=== PATIENT | female | born 2000 | race Caucasian/White ===

== ENCOUNTER 2020-06-15 15:48 | Emergency (ER) | payer OTHER, SELFPAY ==
[2020-06-15 15:49] VITALS: BP 126/83; PULSE 88; RESP 16; TEMP 36.3; O2SAT 98; BMI 23.6
--- NOTE | 2020-06-15 15:59 | ED.VIS.GEN ---
History of Present Illness Informant: Patient Onset: Today Context: Gradual Onset Timing: Continuous Quality: nausea Location: stomach Current Severity: Severe Maximum Severity: Severe Worsened by: Eating and drinking Relieved by: Nothing Associated Symptoms: Nausea and vomiting Narrative: 20-year-old female who denies any significant past medical history presents to the emergency department with nausea and vomiting. Patient states that throughout the course of today she has had difficulty keeping down food and fluids. She states she was drinking alcohol last evening. Everclear. She states that she has drank more in the past without these type of symptoms. She is not really having any abdominal pain. She is not lightheaded or dizzy. No coffee-ground emesis or hematemesis. No diarrhea melena or hematochezia. She is been urinating normally. No fevers chest pain or shortness of breath. No sick contacts. No recent travel no sick contacts no antibiotic use recently. No history of abdominal surgeries. Prior similar symptoms: Yes Recent Illness/Hospitalization: No <Ruben Romero - Last Filed: 06/15/20 17:00> <Quique Bolden - Last Filed: 06/15/20 17:04> Chief Complaint: Nausea/Vomiting Past Medical History Prior records reviewed: Yes Past Medical History: None Surgical History: no surgical history Lives: With Family Smoking Status: Never smoker Alcohol: Occasional Drugs: None <Ruben Romero - Last Filed: 06/15/20 17:00> <Quique Bolden - Last Filed: 06/15/20 17:04> - Allergies and Home Meds Allergies/Adverse Reactions: Allergies No Known Allergies Allergy (Verified 06/15/20 15:49) Primary Care Physician: Cayla Duron MD [STAFF PHYSICIAN] - Review of Systems All systems negative except as indicated General: Denies: Chills, Fever, Sweats Eyes: Denies: Visual changes - bilaterally, Diplopia ENT: Denies: Rhinorrhea, Sore throat Cardiovascular: Denies: Chest pain, Palpitations Respiratory: Denies: Dyspnea, Cough, Dyspnea on exertion Gastrointestinal: Reports: Nausea, Vomiting. Denies: Abdominal pain, Diarrhea, Constipation, Melena, Hematochezia Genitourinary: Denies: Dysuria, Hematuria, Frequency Musculoskeletal: Denies: Back pain, Swelling, Extremity Pain Skin: Denies: Rash, Wounds Neurological: Denies: Headache, Weakness, Numbness <Ruben Romero - Last Filed: 06/15/20 17:00> Physical Exam Vital Signs/Narrative: Vital Signs Temp Pulse Resp BP Pulse Ox 06/15/20 15:49 97.4 F L 88 16 126/83 H 98 Inital Vital Signs reviewed: Yes General: Well nourished, Well developed, No Acute Distress Head: Normocephalic, Atraumatic Eyes: Perrl, EOMI ENT: Moist mucous membranes, No rhinorrhea Neck: Supple, Nontender Cardiovascular: Regular rate, Regular rhythm, No murmurs Respiratory: No distress, CTA bilaterally, Chest nontender Abdomen: Soft, Nontender, Nondistended, Normal bowel sounds Back: Nontender, Normal Inspection. Negative for: CVA tenderness, Spinal tenderness Extremities: Nontender, No edema Skin: Normal color, No rash Neurological: Alert, Oriented x3, Cranial nerves II-XII grossly intact, Normal Strength, Normal Sensation, Normal Gait Psychological: Normal affect, Normal Mood <Ruben Romero - Last Filed: 06/15/20 17:00> Vital Signs/Narrative: Vital Signs Temp Pulse Resp BP Pulse Ox 06/15/20 15:49 97.4 F L 88 16 126/83 H 98 <Quique Bolden - Last Filed: 06/15/20 17:04> Diagnostic/Tx/Re-eval - Medical Decision Making Patient has normal stable vital signs. Patient is well-appearing. She was given a liter of fluids and Zofran. is negative. Repeat exam patient feels improved. She is tolerating by mouth. Repeat abdominal exam was soft and nontender. Patient will be discharged with a prescription for Zofran. Discussed bland diet return precautions and she will follow up with her primary care next week <Ruben Romero - Last Filed: 06/15/20 17:00> - Medical Decision Making Patient's abdomen is soft and nontender. Urine was obtained which was no evidence of . Patient was given fluids and Zofran. She had resolution of her nausea and is now tolerating oral. At this point, the patient will be discharged home. <Quique Bolden - Last Filed: 06/15/20 17:04> ED Disposition <Ruben Romero - Last Filed: 06/15/20 17:00> <Quique Bolden - Last Filed: 06/15/20 17:04> - Plan for ED Patient: Disposition: Home or Assisted Living Diagnosis: Nausea and vomiting Instructions: ED Nausea Vomiting Adult Prescriptions: Ondansetron [Zofran Odt] 4 mg PO Q8H PRN PRN #10 tab PRN Reason: Nausea Prescription Printed Referrals: Cayla Duron MD [STAFF PHYSICIAN] -
[2020-06-15] MEDS: 0.9% Normal Saline 1,000 ML 1000 ML IV (16:22)
[2020-06-15] MEDS: Ondansetron 4 MG/2 ML Vial IV (16:22)
[2020-06-15 16:27] LABS: Internal QC Validated? YES +Cl - CLEAR BKGD; Pregnancy, Urine Negative Negative
== END 2020-06-15 17:06 | disposition home or self-care (01) ==
PROVIDERS: Emergency Provider Physician Assistant Medical; PCP Pediatrics
DX: R11.2 Nausea with vomiting, unspecified (principal)
CPT/HCPCS: 81025; 96361; 96374; 99282; J7030; A4216; J2405